=== PATIENT | female | born 1940 | race Caucasian/White ===

== ENCOUNTER → 2020-04-06 12:53 | Outpatient (CLI) | payer MEDICARE, OTHER, SELFPAY ==
--- NOTE | 2020-04-06 12:54 | MR_ITS ---
PROCEDURE: MR ANGIO HEAD WO CON CLINICAL INDICATION: evaluation of internal circulation Pt c/o vertigo and headaches x a few months. COMPARISON: No exams were available for comparison TECHNIQUE: 3D [id number] images with multi slab reformats without contrast. FINDINGS: No aneurysm, AVM, or major intracranial occlusive process is evident. Single-shot MRV is unremarkable. IMPRESSION: Negative MRA of the brain Dictated by: Jasvir Francois MD 04/07/2020 12:59 Jasvir Francois MD in [place] 04/07/2020 12:59
== END ==
PROVIDERS: Visit Provider Specialist
DX: R42 Dizziness and giddiness (principal); R51 Headache
CPT/HCPCS: 70544

== ENCOUNTER 2020-04-06 13:35 | Outpatient (RCR) | payer MEDICARE, OTHER, SELFPAY ==
--- NOTE | 2020-04-06 14:54 | HMH.PTOPEV ---
PT Outpatient Evaluation Rehab PT Outpatient Evaluation Start: 04/06/20 14:45 Freq: Status: Active Protocol: Document 04/06/20 14:45 JACKELYNDAVID (Rec: 04/06/20 14:54 NORBERTOJEANNETTE [id number]) Electronically Signed By Ruddy Roque, PT 04/06/20 14:45 Outpatient Therapy Subjective History Subjective History This is th e initial Physical Therapy evaluation for Belia Banerjee. Pt is a 80 y/o femlae referred to PT for c/o dizziness and vertigo . Pt rpeorts that approximately December she began having severe immediate onset bouts of vertigo, with nausea and vomiting that would last for hours. Pt reports there was no aggravating factor to the onset. Pt also reports that ~ January she had a possible CVA, pt reports she was having a bout of vertigo and was unable to get up off the floor. Pt reports her children came to get her and could not understand her words . 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 Pt reports she had some episodes in the following weeks of blurry/wavy vision and wooziness but has been fine for the last few weeks. Chief Complaint Other Symptom Type Other Symptoms Relieved By Nothing Prior Functional Limitations None Current Functional Limitations Driving Balance Eval Chief Complaint vertigo Yes Did you feel dizzy, unsteady or faint? Yes Activity at onset unknown Prior Functional Limitations Prior Functional [place] Level I w/ all adl's Current Functional Limitations Comment I w/ all ADL's Hx of Falls Hx Falls No Gait/Posture Asssessment General Gait Observation No Deviations/Normal Assistive Devices None / NA Level of Transfer Assist Independent Hip Observation in Gait Swing No Deviation Hip Observation in Gait Stance No Deviation Ankle/Foot Observation in Gait Swing No Deviation A
== END 2020-04-06 14:25 | disposition home or self-care (01) ==
LOC: PT 13:35
PROVIDERS: PCP Specialist; Visit Provider Specialist
DX: R51 Headache (principal); R42 Dizziness and giddiness
CPT/HCPCS: 97163